=== PATIENT | female | born 1950 | race Caucasian/White ===

== ENCOUNTER 2018-05-03 16:12 | Outpatient (REF) | payer BC, SELFPAY ==
--- NOTE | 2018-05-03 14:40 | PAPFT_PTH ---
PATIENT: Tonja Joseph LOC: [facility] U#:[id number] AGE/SX: 67/F ROOM: RE05/03/[address]: Britta Molina : 1950 BED: DIS: 05/03/2018 SPEC #: [id number] RECD: 05/03/18 17:45 STATUS: ROSI RESusana #: [id number] EJ: 05/03/18 14:[address]: Britta Molina DEPT: [facility] Cytology RECD BY: Elena Barbosa ENTERED: 05/03/18 17:46 SP TYPE: PAPFT MIKE DR: None Tissues: 1 - CX/ENDOCX FOR PAP SMEARS Procedures: PAP THIN PREP/UVM Screening HPV DNA PROBE Comments: [id number]
== END 2018-05-03 16:32 ==
LOC: LBN 16:12
PROVIDERS: Visit Provider Obstetrics & Gynecology Gynecology
DX: Z12.4 Encounter for screening for malignant neoplasm of cervix (principal); Z11.51 Encounter for screening for human papillomavirus (HPV)
CPT/HCPCS: 88142; 87624

== ENCOUNTER 2018-06-13 16:57 | Inpatient (IN) | payer MEDICARE, BC, SELFPAY ==
[2018-06-13] VITALS (12 sets, daily range): BP systolic 89–146; BP diastolic 42–83; PULSE 73–93; RESP 16–23; TEMP 36.3–36.7; O2SAT 92–96
--- NOTE | 2018-06-13 17:07 | DI.CT_ITS ---
SYMPTOM/DIAGNOSIS: RT SIDED ABD PAIN CTA OF ABDOMEN AND PELVIS: CT angiography was performed with multi slice acquisition and multi planar and 3D reconstruction. Routine examination was performed. No priors for comparison. Dependent atelectatic changes are seen in the lung bases. There is a 6 mm., low attenuation lesion seen in the medial aspect of the posterior segment of the right lobe of the liver. There are several smaller tiny hypodense lesions. These are nonspecific. They may represent cysts but are too small for further characterization. The gallbladder is negative. No biliary ductal dilatation is seen. The pancreas and peripancreatic soft tissues are unremarkable as are the spleen and adrenal glands. The kidneys show normal and symmetric enhancement. No solid renal mass or obstruction is identified. The urinary bladder is intact. The reproductive organs appear grossly unremarkable on this examination. The abdominal aorta is of normal caliber. No aneurysm, occlusion or significant stenosis is seen. The celiac axis, superior mesenteric artery and inferior mesenteric artery are all unremarkable without evidence of occlusion or significant stenosis. The iliac arteries are unremarkable without evidence of occlusion or significant stenosis. The visualized portions of the proximal femoral arteries are unremarkable without occlusion or significant stenosis. No significant abdominal or pelvic adenopathy or pneumoperitoneum is seen. There does appear to be a trace amount of perihepatic fluid and a tiny amount of fluid in the pelvis. The appendix is distended measuring 1.0 cm. It is retrocecal. Mild elsie- appendiceal inflammatory changes are seen. There is mild bowel wall thickening and several loops of the predominantly jejunum. There is also mild dilatation of several loops of small bowel centrally. The colon is of normal caliber and unremarkable. The bones and joints appear to show no acute abnormality. IMPRESSION: 1. Appendix distended measuring at least 1 cm. in diameter. It is retrocecal. There are mild elsie-appendiceal inflammatory changes. The findings are most suggestive of acute appendicitis. No abscess or free air. 2. Scattered areas of bowel wall thickening in the mid small bowel suspicious for enteritis. This may be infectious or inflammatory in etiology. 3. Low attenuation lesions seen in the liver. The largest measures 0.6 cm. They are too small for further characterization. Follow up as clinically appropriate. 4. Unremarkable abdominal arterial system. No evidence of occlusion or significant stenosis.
--- NOTE | 2018-06-13 17:07 | W.ED.GENAD ---
Discharge Plan Disposition Patient Disposition: [facility] INPATIENT Condition: Stable Discharge Details Chief Complaint: Abd Prob Clinical Impression: Acute appendicitis Primary Care Provider: None,None ED Provider: Zachery Austin Home Meds and New Rx's Prescriptions: No Action vitamin K2 40 mcg tablet 200 mcg PO DAILY RF: 0 zolpidem 5 mg tablet 5 mg PO PRN Qty: 30 RF: 0 multivitamin [Daily Vitamin] 1 EACH tablet 1 ea PO DAILY RF: 0 omega-3 fatty acids 1,000 MG capsule 1,000 mg PO DAILY RF: 0 ascorbic acid (vitamin C) [Vitamin C] 500 MG tablet 500 mg PO DAILY RF: 0 cholecalciferol (vitamin D3) 1,000 UNIT capsule 1,000 unit PO DAILY RF: 0 melatonin 1 MG tablet 0.6 mg PO HS RF: 0 Iodine 3 mg PO DAILY RF: 0 Probiotic 1 EACH capsule 1 ea PO DAILY RF: 0 magnesium oxide 250 MG tablet 350 mg PO DAILY RF: 0 Medical Decision Making 67 yo female who denies any chronic medical problems who comes in with chief complaint of abdominal pain starting around 3 hours prior to arrival. SHe had been jumping on a treadmill before this but denies falling. SHe had general abdominal cramping yesterday but then 2-3 hours had severe cramping/sharp pain on the ruq and rlq. Denies vomit but has nausea. HAs tenderness in the rlq and ruq, no distention. She appears uncomfortable on exam and denies any hx of prior surgeries or prior abdominal history such as chrohn's or UC. Given her pain will obtain lab work and imaging to eval for pancreatitis, hepatitis, ischemic bowel, appendicitis and monitor. labs show wbc of [address] shows appendicit[address] Pate consulted, will bring pt to the OR Differential Diagnosis appendicitis, pancreatitis, cholecystitis, mesenteric ischemia Imaging Data Radiologic Study: Attestation: I personally reviewed and interpreted this imaging study as follows: Imaging: CT Scan Radiologist's impression: IMPRESSION: 1. The appendix measures 10 mm and is retrocecal (4:61.) Mild periappendiceal inflammatory changes. Findings consistent with acute appendicitis. 2. Intermittent bowel wall thickening in the jejunum may represent enteritis including infectious and inflammatory etiologies. 3. 6 mm low attenuation nodule right lobe of the liver 40 Hounsfield units. Additional smaller low attenuation areas in the liver are too small to characterize. Lab Data Lab results reviewed: Yes I reviewed the patient's lab results. HPI General Mode of arrival: ambulatory. Date/Time Provider Initiated Documentation: 06/13/18 17:02. Limitations to Documentation: no limitations. Information obtained by: patient. History of Present Illness 67 year old F presents to the emergency department with the chief complaint of abdominal pain, described as severe, with intensity rated at 7. Quality is described as aching, sharp and other (cramping), and is localized to the abdomen. Patient reports no radiation. Patient started experiencing this hour(s) (3) and it has been constant. No relieving factors improve symptom(s), No exacerbating factors reported . Patient notes other (nausea). Patient did receive the following treatments prior to arrival, none Related Data Home Medications Medication Instructions Recorded Confirmed Iodine 3 mg PO DAILY 03/27/13 06/13/18 ascorbic acid (vitamin C) [Vitamin 500 mg PO DAILY 03/27/13 06/13/18 C] cholecalciferol (vitamin D3) 1,000 unit PO DAILY 03/27/13 06/13/18 melatonin 0.6 mg PO HS 03/27/13 06/13/18 multivitamin [Daily Vitamin] 1 ea PO DAILY 03/27/13 06/13/18 omega-3 fatty acids 1,000 mg PO DAILY 03/27/13 06/13/18 Lactobacillus acidophilus 1 ea PO DAILY 04/04/14 06/13/18 [Probiotic] magnesium oxide 350 mg PO DAILY 04/08/15 06/13/18 vitamin K2 40 mcg tablet 200 mcg PO DAILY tab 05/03/18 06/13/18 zolpidem 5 mg tablet 5 mg PO PRN #30 tab 05/03/18 06/13/18 Previous Rx's Medication Instructions Recorded zolpidem 5 mg tablet 5 mg PO PRN #30 tab 05/03/18 Allergies Allergy/AdvReac Type Severity Reaction Status Date / Time No Known Allergies Allergy Unverified 05/03/18 14:20 General Stated Complaint: Abd Prob MAURICE: 3 Review of Systems Review of Systems All systems reviewed & are unremarkable except as noted in HPI and below Constitutional Denies chills, Denies fever(s) and Denies weakness ENT Denies change in voice Cardiovascular Denies chest pain and Denies dyspnea Respiratory Denies cough and Denies dyspnea Gastrointestinal Denies abdominal pain and Denies nausea Integumentary/Breasts Denies rash Neurologic Denies weakness [facility] Medical History Actinic keratosis due to exposure to sunlight (Chronic) Insomnia (Chronic) Osteopenia of femoral neck (Chronic) Rectocele, female (Chronic) TV (tinea versicolor) (Chronic) Family History Mother No problems noted. Other Heart disease Hyperlipidemia Osteoporosis Social History household members: spouse marital status details: Rell number of children: 3 current occupational status: retired current occupation: Retired dental hygienist Smoking and Tabacco status: Never second hand exposure: Yes alcohol intake: current alcohol intake frequency: a few times a week substance use type: does not use Seatbelt use: always additional social history: Children: Kaitlynn-lives in [place]. One grandchild-Elis Villa 31 years old lives in [place], [place]. Izzy 26 yo. Female Reproductive History Menstrual Menopause type: natural (50 years old) History History 5 Para Hx # Term Pregnancies 3 Multiple births Hx # Pregnancies Ectopic pregnancies AB induced Hx Number of Living Children AB spontaneous Exam Const General: other (appears in pain) Orientation: alert HENMT Head: normal to inspection Ears: external ears normal General nose exam: external nose normal Mouth: moist mucous membranes Eyes General: appearance normal, both eyes and all related structures Neck Neck: normal visual inspection Resp Effort & Inspection: normal respiratory effort and able to speak in complete sentences Cardio Rate: regular rate GI Inspection: no abdominal wall ecchymosis Palpation: soft and tender in the RLQ and in the RUQ Skin General skin exam: no rashes or lesions noted Neuro General: alert and oriented x3 Extrem General: normal to inspection Psych Mental Status: mental status grossly normal Course Vital Signs Temperature 36.7 C 06/13/18 17:04 Pulse 80 06/13/18 17:04 Blood Pressure 146/83 H 06/13/18 17:04 Pulse Oximetry 96 06/13/18 17:04 Temperature 36.7 C 06/13/18 17:04 Temperature Source Temporal Artery Scan 06/13/18 17:04 Pulse 80 06/13/18 17:04 Blood Pressure 146/83 H 06/13/18 17:04 Blood Pressure Position Sitting 06/13/18 17:04 Pulse Oximetry 96 06/13/18 17:04 Oxygen Delivery Method Room Air 06/13/18 17:04 Oxygen Flow Rate 0 06/13/18 17:04 Pain Level 10 06/13/18 17:04
--- NOTE | 2018-06-13 17:11 | ED.GENADUL_ITS ---
Discharge Plan Disposition Patient Disposition: [facility] INPATIENT Condition: Stable Discharge Details Chief Complaint: Abd Prob Clinical Impression: Acute appendicitis Primary Care Provider: None,None ED Provider: Zachery Austin Home Meds and New Rx's Prescriptions: No Action vitamin K2 40 mcg tablet 200 mcg PO DAILY RF: 0 zolpidem 5 mg tablet 5 mg PO PRN Qty: 30 RF: 0 multivitamin [Daily Vitamin] 1 EACH tablet 1 ea PO DAILY RF: 0 omega-3 fatty acids 1,000 MG capsule 1,000 mg PO DAILY RF: 0 ascorbic acid (vitamin C) [Vitamin C] 500 MG tablet 500 mg PO DAILY RF: 0 cholecalciferol (vitamin D3) 1,000 UNIT capsule 1,000 unit PO DAILY RF: 0 melatonin 1 MG tablet 0.6 mg PO HS RF: 0 Iodine 3 mg PO DAILY RF: 0 Probiotic 1 EACH capsule 1 ea PO DAILY RF: 0 magnesium oxide 250 MG tablet 350 mg PO DAILY RF: 0 Medical Decision Making 67 yo female who denies any chronic medical problems who comes in with chief complaint of abdominal pain starting around 3 hours prior to arrival. SHe had been jumping on a treadmill before this but denies falling. SHe had general abdominal cramping yesterday but then 2-3 hours had severe cramping/sharp pain on the ruq and rlq. Denies vomit but has nausea. HAs tenderness in the rlq and ruq, no distention. She appears uncomfortable on exam and denies any hx of prior surgeries or prior abdominal history such as chrohn's or UC. Given her pain will obtain lab work and imaging to eval for pancreatitis, hepatitis, ischemic bowel, appendicitis and monitor. labs show wbc of [address] shows appendicitis. Dr[address] Pate consulted, will bring pt to the OR Differential Diagnosis appendicitis, pancreatitis, cholecystitis, mesenteric ischemia Imaging Data Radiologic Study: Attestation: I personally reviewed and interpreted this imaging study as follows: Imaging: CT Scan Radiologist's impression: IMPRESSION: 1. The appendix measures 10 mm and is retrocecal (4:61.) Mild periappendiceal inflammatory changes. Findings consistent with acute appendicitis. 2. Intermittent bowel wall thickening in the jejunum may represent enteritis including infectious and inflammatory etiologies. 3. 6 mm low attenuation nodule right lobe of the liver 40 Hounsfield units. Additional smaller low attenuation areas in the liver are too small to characterize. Lab Data Lab results reviewed: Yes I reviewed the patient's lab results. HPI General Mode of arrival: ambulatory . Date/Time Provider Initiated Documentation: 06/13/18 17:02 . Limitations to Documentation: no limitations . Information obtained by: patient . History of Present Illness 67 year old F presents to the emergency department with the chief complaint of abdominal pain, described as severe, with intensity rated at 7. Quality is described as aching, sharp and other (cramping), and is localized to the abdomen. Patient reports no radiation. Patient started experiencing this hour(s) (3) and it has been constant. No relieving factors improve symptom(s), No exacerbating factors reported . Patient notes other (nausea). Patient did receive the following treatments prior to arrival, none Related Data Home Medications Medication Instructions Recorded Confirmed Iodine 3 mg PO DAILY 03/27/13 06/13/18 ascorbic acid (vitamin C) [Vitamin 500 mg PO DAILY 03/27/13 06/13/18 C] cholecalciferol (vitamin D3) 1,000 unit PO DAILY 03/27/13 06/13/18 melatonin 0.6 mg PO HS 03/27/13 06/13/18 multivitamin [Daily Vitamin] 1 ea PO DAILY 03/27/13 06/13/18 omega-3 fatty acids 1,000 mg PO DAILY 03/27/13 06/13/18 Lactobacillus acidophilus 1 ea PO DAILY 04/04/14 06/13/18 [Probiotic] magnesium oxide 350 mg PO DAILY 04/08/15 06/13/18 vitamin K2 40 mcg tablet 200 mcg PO DAILY tab 05/03/18 06/13/18 zolpidem 5 mg tablet 5 mg PO PRN #30 tab 05/03/18 06/13/18 Previous Rx's Medication Instructions Recorded zolpidem 5 mg tablet 5 mg PO PRN #30 tab 05/03/18 Allergies Allergy/AdvReac Type Severity Reaction Status Date / Time No Known Allergies Allergy Unverified 05/03/18 14:20 General Stated Complaint: Abd Prob MAURICE: 3 Review of Systems Review of Systems All systems reviewed & are unremarkable except as noted in HPI and below Constitutional Denies chills, Denies fever(s) and Denies weakness ENT Denies change in voice Cardiovascular Denies chest pain and Denies dyspnea Respiratory Denies cough and Denies dyspnea Gastrointestinal Denies abdominal pain and Denies nausea Integumentary/Breasts Denies rash Neurologic Denies weakness [facility] Medical History Actinic keratosis due to exposure to sunlight (Chronic) Insomnia (Chronic) Osteopenia of femoral neck (Chronic) Rectocele, female (Chronic) TV (tinea versicolor) (Chronic) Family History Mother No problems noted. Other Heart disease Hyperlipidemia Osteoporosis Social History household members: spouse marital status details: Rell number of children: 3 current occupational status: retired current occupation: Retired dental hygienist Smoking and Tabacco status: Never second hand exposure: Yes alcohol intake: current alcohol intake frequency: a few times a week substance use type: does not use Seatbelt use: always additional social history: Children: Kaitlynn-lives in [place]. One grandchild-Elis Villa 31 years old lives in [place], [place]. Izzy 26 yo. Female Reproductive History Menstrual Menopause type: natural (50 years old) History History 5 Para Hx # Term Pregnancies 3 Multiple births Hx # Pregnancies Ectopic pregnancies AB induced Hx Number of Living Children AB spontaneous Exam Const General: other (appears in pain) Orientation: alert HENMT Head: normal to inspection Ears: external ears normal General nose exam: external nose normal Mouth: moist mucous membranes Eyes General: appearance normal, both eyes and all related structures Neck Neck: normal visual inspection Resp Effort & Inspection: normal respiratory effort and able to speak in complete sentences Cardio Rate: regular rate GI Inspection: no abdominal wall ecchymosis Palpation: soft and tender in the RLQ and in the RUQ Skin General skin exam: no rashes or lesions noted Neuro General: alert and oriented x3 Extrem General: normal to inspection Psych Mental Status: mental status grossly normal Course Vital Signs Temperature 36.7 C 06/13/18 17:04 Pulse 80 06/13/18 17:04 Blood Pressure 146/83 H 06/13/18 17:04 Pulse Oximetry 96 06/13/18 17:04 Temperature 36.7 C 06/13/18 17:04 Temperature Source Temporal Artery Scan 06/13/18 17:04 Pulse 80 06/13/18 17:04 Blood Pressure 146/83 H 06/13/18 17:04 Blood Pressure Position Sitting 06/13/18 17:04 Pulse Oximetry 96 06/13/18 17:04 Oxygen Delivery Method Room Air 06/13/18 17:04 Oxygen Flow Rate 0 06/13/18 17:04 Pain Level 10 06/13/18 17:04
[2018-06-13] MEDS: fentaNYL 100 MCG/2 ML VIAL 50 MCG IVP ×2 (17:17→19:09)
[2018-06-13] MEDS: Ondansetron 4 MG/2 ML VIAL (17:18)
[2018-06-13] MEDS: Normal Saline 1,000 ML 1000 ML IV (17:18)
[2018-06-13 17:28] LABS: ALT 18 U/L (12-78); AST 14 U/L (15-37); Albumin 3.8 g/dL (3.4-5.0); Alkaline Phosphatase 67 U/L (46-116); Anion Gap 10.9 mmol/L (3-11); BUN 14 mg/dL (7-18); Bilirubin, Direct 0.16 mg/dL (0.00-0.20); Bilirubin, Total 0.8 mg/dL (0.2-1.0); CO2 28.1 mmol/L (21.0-32.0); CREATININE 0.91 mg/dL (0.55-1.02); Chloride 97 mmol/L (98-107); Glucose 140 mg/dL (70-100); Lipase 92 U/L (73-393); Magnesium 1.6 mg/dL (1.8-2.4); Potassium 3.4 mmol/L (3.5-5.1); Sodium 136 mmol/L (136-145)
[2018-06-13 17:36] LABS: Abs Immature Grans 0.03 k/cumm (0.0-0.09); Absolute Basophil Count 0.03 k/cumm (0.0-0.2); Absolute Eosinophil Count 0.04 k/cumm (0.0-0.7); Absolute Lymphocyte Count 1.82 k/cumm (1.2-3.4); Absolute Neutrophil Count 10.82 k/cumm (1.2-6.7); Basophils % 0.2; Eosinophils % 0.3; HCT 44.3 % (36.0-46.0); HGB 14.9 g/dL (12.0-15.5); Immature Grans % 0.2; Lymphocytes % 13.7; Mean Corp. HGB Concentration 33.6 g/dL (32.0-36.0); Mean Corpuscular Hemoglobin 29.6 pg (27.0-33.0); Mean Corpuscular Volume 87.9 fL (80-95); Mean Platelet Volume 10.3 fL (8.0-11.0); Monocytes % 4.4; Neutrophils % 81.2; Platelet Count 257 x1000/uL (130-400); RBC 5.04 m/cumm (4.00-5.20); RBC Distribution Width 12.8 % (11.7-14.6); White Blood Cell Count 13.32 k/cumm (4.4-10.8)
[2018-06-13 17:48] LABS: Absolute Monocyte Count 0.59 k/cumm (0.11-0.7)
[2018-06-13 17:49] LABS: PTT Activated 23.2 sec (21.0-31.4); Prothrombin Time 9.9 sec (9.3-11.0)
[2018-06-13] MEDS: Omnipaque 350 MG/ML 100 ML BTL IV (18:27)
[2018-06-13 18:38] LABS: Bilirubin Negative (Negative); Blood Negative (Negative); Clarity Clear; Glucose Negative (Negative); Ketones 80 mg/dL (Negative); Leukocyte Esterase Small (Negative); Nitrite Negative (Negative); Specific Gravity 1.015 (1.005-1.025); Urobilinogen 0.2 EU/dL (Up TO 0.2)
[2018-06-13 18:41] LABS: Bacteria Few HPF (Negative); C & S Indicated? Yes; Casts Negative LPF (Negative); Crystals Negative HPF (Negative); Epithelial Cells Few HPF (Negative); Mucus Negative (Negative); RBC Negative (0-2)
--- NOTE | 2018-06-13 18:55 | DI.VRAD_ITS ---
Addendum created by Chaz Gallo MD on 06/13/2018 6:56:54 PM EST THIS REPORT CONTAINS FINDINGS THAT MAY BE CRITICAL TO PATIENT CARE. The findings were verbally communicated via telephone conference with Zachery Austin at 6:56 PM EST on 06/13/2018. The findings were acknowledged and understood. Initial report created on 06/13/2018 6:55:09 PM EST EXAM: CT Angiography Abdomen and Pelvis With Contrast EXAM DATE/TIME: 06/13/2018 5:08 PM CLINICAL HISTORY: 67 years old, female; Signs and symptoms; Other: Right sided abdominal pain TECHNIQUE: Axial computed tomographic angiography images of the abdomen and pelvis with intravenous contrast material, including non-contrast images if performed. MIP and/or 3D reconstructed images were created and reviewed. All CT scans at this facility use at least one of these dose optimization techniques: automated exposure control; mA and/or kV adjustment per patient size (includes targeted exams where dose is matched to clinical indication); or iterative reconstruction. CONTRAST: Contrast Material: 100 ml of omnipaque 350; Contrast Route: iv COMPARISON: No relevant prior studies available. FINDINGS: Mediastinum: Mild hiatal hernia VASCULATURE: Aorta: No aortic aneurysm. No aortic dissection. Celiac trunk and mesenteric arteries: No occlusion or significant stenosis. Renal arteries: No occlusion or significant stenosis. Right iliac arteries: No occlusion or significant stenosis. Right femoral/popliteal arteries: No occlusion or significant stenosis of the imaged proximal femoral artery. The popliteal artery was not imaged. Left iliac arteries: No occlusion or significant stenosis. Left femoral/popliteal arteries: No occlusion or significant stenosis of the imaged proximal femoral artery. The popliteal artery was not imaged. ABDOMEN: Liver: 6 mm low attenuation nodule right lobe of the liver 40 Hounsfield units. Additional smaller low attenuation areas in the liver are too small to characterize. Gallbladder and bile ducts: Unremarkable. No calcified stones. No ductal dilation. Pancreas: Unremarkable. No mass. No ductal dilation. Spleen: Unremarkable. No splenomegaly. Adrenals: Unremarkable. No mass. Kidneys and ureters: 9 mm cyst in the posterior right kidney. Stomach and bowel: Intermittent bowel wall thickening in the jejunum may represent enteritis including infectious and inflammatory etiologies. Findings consistent with constipation Appendix: The appendix measures 10 mm and is retrocecal (4:61.) Mild periappendiceal inflammatory changes. Findings consistent with acute appendicitis. PELVIS: Bladder: Unremarkable. No mass. Reproductive: Unremarkable as visualized. ABDOMEN and PELVIS: Intraperitoneal space: Minimal ascites adjacent to liver . Mild amount of free fluid in the pelvis Bones/joints: No acute fracture. No dislocation. Soft tissues: Unremarkable. Lymph nodes: Unremarkable. No enlarged lymph nodes. IMPRESSION: 1. The appendix measures 10 mm and is retrocecal (4:61.) Mild periappendiceal inflammatory changes. Findings consistent with acute appendicitis. 2. Intermittent bowel wall thickening in the jejunum may represent enteritis including infectious and inflammatory etiologies. 3. 6 mm low attenuation nodule right lobe of the liver 40 Hounsfield units. Additional smaller low attenuation areas in the liver are too small to characterize. Dictated and Authenticated by: Chaz Gallo MD. Ordering:CASSY Bingham MD
[2018-06-13] MEDS: PIPERACILLIN/TAZO 4.5 GM in Normal Saline 100 ML IVPB (19:12)
--- NOTE | 2018-06-13 20:11 | W.SURGCON ---
Date of service: 06/13/18 Time of Service: 20:11 Assessment and Plan (1) Acute appendicitis: Current visit: Yes Status: Acute P\\ Laparoscopic Appendectomy, possible open Risks, benefits, complications were reviewed with the patient and her . Complications include but are not limited to bleeding, infection, pain, injury to small bowel or large bowel, inability to do the surgery laparoscopically, sore throat, and adverse reaction to the medications. Questions were entertained and answered to their satisfaction and they wish to proceed. No guarantees were given or implied. Qualifiers: Acute appendicitis type: with localized peritonitis Appendicitis gangrene presence: unspecified whether gangrene present Appendicitis perforation presence: unspecified whether perforation present Appendicitis abscess presence: unspecified whether abscess present Qualified Code(s): K35.30 - Acute appendicitis with localized peritonitis, without perforation or gangrene History of Present Illness Chief Complaint: Abdominal pain Narrative: Mrs. Joseph is a pleasant 67 year old female who was having some mild cramping abdominal pain yesterday. This morning she felt a little better her granddaughter was with her and she was busy with her baking cookies. She stated she did not have an appetite all day and when her ground her daughter asked her to jump on the small trampoline in the home she tried and had a lot of pain. By about 2:00 in the afternoon she was doubled over in pain. Pain is located in the right lower quadrant. She denies any nausea or vomiting. She denies any diarrhea. There is nobody else in the family who is sick. She has not had a sore throat or upper respiratory symptoms. Workup in the ED revealed a slightly elevated white blood cell count at [address] scan of the abdomen and pelvis showed a dilated appendix with some periappendiceal inflammation. The appendix was also noted to be retrocecal. Ms. Joseph is otherwise quite healthy. Her medications are mostly vitamins except for zolpidem which she takes for insomnia. She denies any chest pain. She does not have a history of heart attacks or strokes in the past. Her last meal was before noon which was a rice cracker with peanut butter. She last had a couple of glasses of water between 2 PM and 4 PM when she came to the emergency department. Consults Consult date: 06/13/18 Requesting physician: Zachery Austin Review of Systems Constitutional Reports fever(s) (just now in the ER, NO fevers at home), Denies night sweats, Reports poor appetite and Denies weight loss Eyes Denies change in vision ENT Denies neck pain Cardiovascular Denies chest pain, Denies chest pain at rest, Denies chest pain with activity, Denies irregular heart rhythm, Denies claudication, Denies palpitations, Denies dyspnea, Denies dyspnea on exertion and Denies slow heart rate Respiratory Denies chest congestion, Denies cough, Denies dyspnea and Denies dyspnea on exertion Gastrointestinal Reports as per HPI Genitourinary Denies dysuria Musculoskeletal Denies myalgias and Denies neck pain Endocrine Denies cold intolerance, Denies heat intolerance, Denies polydipsia and Denies palpitations Hematologic/Lymphatic Denies easy bleeding, Denies easy bruising and Denies lymphadenopathy PFSH Medical History Actinic keratosis due to exposure to sunlight (Chronic) Insomnia (Chronic) Osteopenia of femoral neck (Chronic) Rectocele, female (Chronic) TV (tinea versicolor) (Chronic) Family History Mother No problems noted. Other Heart disease Hyperlipidemia Osteoporosis Social History household members: spouse marital status details: Rell number of children: 3 current occupational status: retired current occupation: Retired dental hygienist Smoking and Tabacco status: Never second hand exposure: Yes alcohol intake: current alcohol intake frequency: a few times a week substance use type: does not use Seatbelt use: always additional social history: Children: Kaitlynn-lives in [place]. One grandchild-Elis Villa 31 years old lives in [place], [place]. Izzy 26 yo. Female Reproductive History Menstrual Menopause type: natural (50 years old) History History 5 Para Hx # Term Pregnancies 3 Multiple births Hx # Pregnancies Ectopic pregnancies AB induced Hx Number of Living Children AB spontaneous Exam Const General: cooperative, comfortable and no acute distress Orientation: alert and oriented x3 HENMT Head: normocephalic and atraumatic Eyes Pupils: PERRL Resp Effort & Inspection: normal respiratory effort Auscultation: clear to auscultation bilaterally Cardio Rate: regular rate Rhythm: regular rhythm Heart Sounds: no gallops, no murmurs and no rubs GI Inspection: normal to inspection Palpation: soft, no hepatosplenomegaly and tender in the RLQ and at McBurney's point Auscultation: normal bowel sounds General: deferred Extrem General: no clubbing, cyanosis or edema Results Last Vital Signs Temp 98.1 F 06/13/18 17:04 Pulse 93 H 06/13/18 18:58 Resp 16 06/13/18 18:58 BP 113/63 06/13/18 18:58 Pulse Ox 95 06/13/18 18:58 Labs : 06/13/18 17:05 06/13/18 17:05 Laboratory Results - last 24 hr 06/13/18 06/13/18 06/13/18 17:05 17:05 17:05 WBC 13.32 H RBC 5.04 Hgb 14.9 Hct 44.3 MCV 87.9 MCH 29.6 MCHC 33.6 RDW 12.8 Plt Count 257 MPV 10.3 Immature Gran % 0.2 Neutrophils % 81.2 Lymphocytes % 13.7 Monocytes % 4.4 Eosinophils % 0.3 Basophils % 0.2 Absolute Neutrophils 10.82 H Absolute Lymphocytes 1.82 Absolute Monocytes 0.59 Absolute Eosinophils 0.04 Absolute Basophils 0.03 PT 9.9 INR 1.0 APTT Sodium 136 Potassium 3.4 L Chloride 97 L Carbon Dioxide 28.1 Anion Gap 10.9 BUN 14 Creatinine 0.91 Estimated GFR/1.73 m2 >= 60.00 Glucose 140 H Calcium 9.0 Magnesium 1.6 L Total Bilirubin 0.8 Conjugated Bilirubin 0.16 AST 14 L ALT 18 Alkaline Phosphatase 67 Total Protein 8.0 Albumin 3.8 Lipase 92 Urine Color Urine Clarity Urine pH Ur Specific Beatrice Urine Protein Urine Ketones Urine Blood Urine Nitrite Urine Bilirubin Urine Urobilinogen Ur Leukocyte Esterase Urine RBC Urine WBC Ur Epithelial Cells Urine Crystals Urine Bacteria Urine Casts Urine Mucus Ur Culture Indicated? Urine Glucose 06/13/18 06/13/18 17:05 18:25 WBC RBC Hgb Hct MCV MCH MCHC RDW Plt Count MPV Immature Gran % Neutrophils % Lymphocytes % Monocytes % Eosinophils % Basophils % Absolute Neutrophils Absolute Lymphocytes Absolute Monocytes Absolute Eosinophils Absolute Basophils PT INR APTT 23.2 Sodium Potassium Chloride Carbon Dioxide Anion Gap BUN Creatinine Estimated GFR/1.73 m2 Glucose Calcium Magnesium Total Bilirubin Conjugated Bilirubin AST ALT Alkaline Phosphatase Total Protein Albumin Lipase Urine Color Yellow Urine Clarity Clear Urine pH 6.0 Ur Specific Beatrice 1.015 Urine Protein Negative Urine Ketones 80 H Urine Blood Negative Urine Nitrite Negative Urine Bilirubin Negative Urine Urobilinogen 0.2 Ur Leukocyte Esterase Small H Urine RBC Negative Urine WBC 5-10 Ur Epithelial Cells Few Urine Crystals Negative Urine Bacteria Few Urine Casts Negative Urine Mucus Negative Ur Culture Indicated? Yes Urine Glucose Negative
[2018-06-13] MEDS: Lactated Ringers 1,000 ML 1000 ML IV (20:23)
--- NOTE | 2018-06-13 21:10 | APP_PTH ---
PATIENT: Tonja Joseph LOC: [id number] AGE/SX: 67/F ROOM: [id number] RE06/13/[address]: Stefani Andrews MD : [id number] BED: A DIS: 06/14/2018 SPEC #: [id number] RECD: 06/14/18 12:25 STATUS: ROSI REQ #: [id number] EJ: 06/13/18 21:[address]: Stefani Andrews DEPT: Surgical Specimen RECD BY: Elena Barbosa ENTERED: 06/14/18 12:26 SP TYPE: Appendix OTHR DR: None Tissues: 1 - APPENDIX NOT INCIDENTAL Procedures: GROSS AND MICRO LEVEL 3 Comments: [id number]
[2018-06-13] MEDS: Lidocaine 1% Multi-Dose 50 ML VIAL (21:28)
[2018-06-13] MEDS: Lactated Ringers 1,000 ML 75 ML IV (21:43)
--- NOTE | 2018-06-13 22:02 | W.PM.OP ---
Date of service: 06/13/18 Time of Service: 22:02 Operative Note DATE OF PROCEDURE: 06/13/18 PRE-OP DIAGNOSIS: Acute appendicitis POST-OP DIAGNOSIS: other (acute suppurative appendicitis) PROCEDURE: Laparoscopic Appendectomy SURGEON: Stefani Andrews BUSINESS CONTINUITY DIRECTOR: Pretty Saucedo ANESTHESIA: GETA ESTIMATED BLOOD LOSS: 50 PATHOLOGY: other (appendix) COMPLICATIONS: None Patient was transported to: PACU Patient's condition: stable Indications: Mrs. Jake bernal 67-year-old female who started to have abdominal pain yesterday which worsened today until she was doubled over and came to the emergency department. Workup in the emergency department revealed a slightly elevated white count of 13,[address] scan showed an enlarged appendix with inflammation. Risks, benefits, complications of the procedure were reviewed with her and her and they wish to proceed. No guarantees were given or implied. Findings: Inflammation of the surrounding cecum and terminal ileum as well as inflammation of the peritoneum was identified. The appendix was dilated and possibly necrotic at the neck. No perforation was noted but there was a lot of inflammatory fluid within the abdomen. Procedure Description: After informed consent was obtained patient was taken to the operating room placed in a supine position. SCDs were applied. Monitors were applied and the patient was placed under general anesthesia and intubated. Once intubated a Farley catheter was placed in the standard surgical fashion. At this point a timeout was done. The patient's name, date of , procedure type, allergies to medication, DVT prophylaxis, antibiotic given, and open oxygen were reviewed. Next the patient's abdomen was prepped and draped in a sterile surgical fashion with ChloraPrep. A mixture of half percent bupivacaine with epinephrine and 1% lidocaine was injected above the umbilicus. A small 5 mm incision was made with an 11 blade. Penetrating towel clamps were then placed on either side of the incision and while pulling up on the skin a 5 mm Visiport was placed under direct visualization into the abdomen without difficulty. Once the port was in place the abdomen was insufflated. At this point tomorrow ports were placed one in the left lower quadrant which was a 12 mm port and and another 5 mm port was placed just above the pubic symphysis. The abdomen was inspected and a lot of inflammation was noted of the peritoneum, the cecum and terminal ileum. There was some cloudy fluid noted along the cecum and up above the liver. The patient was rotated to the left in order to allow the cecum to come more midline allowing me to visualize the appendix. The neck of the appendix was identified and followed along side the terminal ileum until the tip of the appendix was identified. The tip of the appendix was grasped and gently pulled up and then the [place] dissector was used to gently separate the appendiceal epiploica from the terminal ileum. Using the LigaSure the appendiceal epiploica was transected at the neck of the appendix. Because of all the inflammation noted around the appendix and cecum a sterile Vicryl Endoloop was placed around the appendix at the junction with the cecum and cinched down. The suture was cut with Endo scissors. Using a laparoscopic stapler the appendix was then transected just above the Vicryl Endoloop. The appendix was then placed into an Endo Catch bag and removed through the 12 mm port site. The port was replaced and the abdomen was then irrigated with 1-1/2 L of normal saline. A Ray-Ramakrishna was placed into the abdomen to facilitate suctioning of all of the fluid. At the end of the effluent was clear. Once all the fluid was removed the Ray-Ramakrishna was removed from the abdomen. The cecum was inspected no injuries were noted in the staple line was dry. No bleeding was identified. The terminal ileum was then gently grasped and followed along for about 20 cm and no injuries were identified along the area where it was adhered to the appendix. At this point with all the fluid suctioned out of the abdomen 30 cc of the local anesthetic was injected above the liver bed to help with postoperative shoulder pain. At this point the 2 5 mm ports were removed under direct visualization and no bleeding was noted from the fascia. Last at the 12 mm port was removed and the abdomen was completely deflated. Using a 0 Vicryl UR 6 needle the fascia of the 12 mm port site was closed with a figure of 8 stitch. The skin was reapproximated with 4-0 Vicryl. The skin was cleaned and dried and skin affix was applied. The Farley catheter was removed and the patient was woken up extubated and taken back to PACU in stable condition. There were no immediate complications. Instrument, sponge, needles were correct at the end of the case x2.
[2018-06-13] MEDS: DEXTROSE 5%-0.45% SALINE 1,000 ML 125 ML IV (23:16)
[2018-06-14] MEDS: PIPERACILLIN/TAZO 3.375 GM in Normal Saline 50 ML IVPB ×2 (02:04→07:01)
[2018-06-14 03:34] VITALS: BP 100/62; PULSE 66; RESP 16; TEMP 37.4; O2SAT 94
[2018-06-14] MEDS: DEXTROSE 5%-0.45% SALINE 1,000 ML 125 ML IV (04:34)
[2018-06-14] MEDS: Normal Saline Flush 10 ML SYR IVP ×2 (04:35→09:35)
--- NOTE | 2018-06-14 07:12 | PGE_ITS ---
Date of Service Date of service: 06/14/18 Time of Service: 07:05 Assessment and Plan (1) S/P appendectomy: Current visit: Yes Status: Acute A\\ POD #1 s/p Laparoscopic Appendectomy Doing well WBC count elevated. Afebrile. P\\ Saline lock IV Advance diet to regular Ambulate Will D/C home on antibiotics for 5 days If doing well after having breakfast and lunch will D/C home. Subjective Interval history since last seen: Doing well. Tolerating clear liquids. No N/V. Feels a little hungry. Pain well tolerated with Tylenol and Toradol. Exam Const General: cooperative, comfortable and no acute distress Resp Effort & Inspection: normal respiratory effort Auscultation: clear to auscultation bilaterally Cardio Rate: regular rate Rhythm: regular rhythm Heart Sounds: no gallops, no murmurs and no rubs GI Inspection: incision (c/d/i) Palpation: soft and tender in the RLQ Auscultation: normal bowel sounds Objective Objective Clinical Data: Abnormal lab results 06/13/18 06/13/18 06/13/18 Range/Units 17:05 17:05 18:25 WBC 13.32 H (4.4-10.8) k/cumm Absolute Neutrophils 10.82 H (1.2-6.7) k/cumm Potassium 3.4 L (3.5-5.1) mmol/L Chloride 97 L (98-107) mmol/L Glucose 140 H (70-100) mg/dL Magnesium 1.6 L (1.8-2.4) mg/dL AST 14 L (15-37) U/L Urine Ketones 80 H (Negative) mg/dL Ur Leukocyte Esterase Small H (Negative) Vital Signs Temperature 99.3 F 06/14/18 03:34 Temperature Source Tympanic 06/14/18 03:34 Pulse 66 06/14/18 03:34 Pulse Rhythm Regular 06/14/18 06:47 Respiratory Rate 16 06/14/18 03:34 Respiratory Effort 06/14/18 06:47 Respiratory Depth Normal 06/14/18 06:47 Respiratory Pattern Normal 06/14/18 06:47 Blood Pressure 100/62 06/14/18 03:34 Blood Pressure Mean 76 06/13/18 20:01 Blood Pressure Position Sitting 06/13/18 17:04 Pulse Oximetry 94 L 06/14/18 03:34 Respiratory End-tidal CO2 28 06/13/18 21:59 Oxygen Delivery Method Room Air 06/14/18 03:34 Oxygen Flow Rate 0 06/14/18 03:34 Pain Level 0 06/13/18 23:30 Intake & Output 06/13/18 06/13/18 06/14/18 11:59 23:59 11:59 Intake Total 2400 / 2400 915 / 915 Output Total 355 / 355 1550 / 1550 Balance 2045 / 2045 -635 / -635 Weight 135 lb 0.001 oz Intake: IV 2400 / 2400 365 / 365 Oral 550 / 550 Output: Urine 350 / 350 1550 / 1550 Estimated Blood Loss 5 / 5 Other: Urine Color Pale Yellow Urine Appearance Clear Clear Urine Odor Normal Comment Total of two voids Emesis Description None Voiding Methods Toilet Laboratory Results WBC 13.32 k/cumm (4.4-10.8) H 06/13/18 17:05 RBC 5.04 m/cumm (4.00-5.20) 06/13/18 17:05 Hgb 14.9 g/dL (12.0-15.5) 06/13/18 17:05 Hct 44.3 % (36.0-46.0) 06/13/18 17:05 MCV 87.9 fL (80-95) 06/13/18 17:05 MCH 29.6 pg (27.0-33.0) 06/13/18 17:05 MCHC 33.6 g/dL (32.0-36.0) 06/13/18 17:05 RDW 12.8 % (11.7-14.6) 06/13/18 17:05 Plt Count 257 x1000/uL (130-400) 06/13/18 17:05 MPV 10.3 fL (8.0-11.0) 06/13/18 17:05 Immature Gran % 0.2 06/13/18 17:05 Neutrophils % 81.2 06/13/18 17:05 Lymphocytes % 13.7 06/13/18 17:05 Monocytes % 4.4 06/13/18 17:05 Eosinophils % 0.3 06/13/18 17:05 Basophils % 0.2 06/13/18 17:05 Absolute Neutrophils 10.82 k/cumm (1.2-6.7) H 06/13/18 17:05 Absolute Lymphocytes 1.82 k/cumm (1.2-3.4) 06/13/18 17:05 Absolute Monocytes 0.59 k/cumm (0.11-0.7) 06/13/18 17:05 Absolute Eosinophils 0.04 k/cumm (0.0-0.7) 06/13/18 17:05 Absolute Basophils 0.03 k/cumm (0.0-0.2) 06/13/18 17:05 PT 9.9 sec (9.3-11.0) 06/13/18 17:05 INR 1.0 (0.9-1.1) 06/13/18 17:05 APTT 23.2 sec (21.0-31.4) 06/13/18 17:05 Sodium 136 mmol/L (136-145) 06/13/18 17:05 Potassium 3.4 mmol/L (3.5-5.1) L 06/13/18 17:05 Chloride 97 mmol/L (98-107) L 06/13/18 17:05 Carbon Dioxide 28.1 mmol/L (21.0-32.0) 06/13/18 17:05 Anion Gap 10.9 mmol/L (3-11) 06/13/18 17:05 BUN 14 mg/dL (7-18) 06/13/18 17:05 Creatinine 0.91 mg/dL (0.55-1.02) 06/13/18 17:05 Estimated GFR/1.73 m2 >= 60.00 (mL/min/1.73m2) 06/13/18 17:05 Glucose 140 mg/dL (70-100) H 06/13/18 17:05 Calcium 9.0 mg/dL (8.5-10.1) 06/13/18 17:05 Magnesium 1.6 mg/dL (1.8-2.4) L 06/13/18 17:05 Total Bilirubin 0.8 mg/dL (0.2-1.0) 06/13/18 17:05 Conjugated Bilirubin 0.16 mg/dL (0.00-0.20) 06/13/18 17:05 AST 14 U/L (15-37) L 06/13/18 17:05 ALT 18 U/L (12-78) 06/13/18 17:05 Alkaline Phosphatase 67 U/L (46-116) 06/13/18 17:05 Total Protein 8.0 g/dL (6.4-8.2) 06/13/18 17:05 Albumin 3.8 g/dL (3.4-5.0) 06/13/18 17:05 Lipase 92 U/L (73-393) 06/13/18 17:05 Urine Color Yellow (Yellow) 06/13/18 18:25 Urine Clarity Clear 06/13/18 18:25 Urine pH 6.0 (5-8) 06/13/18 18:25 Ur Specific [place] 1.015 (1.005-1.025) 06/13/18 18:25 Urine Protein Negative mg/dL (Negative) 06/13/18 18:25 Urine Ketones 80 mg/dL (Negative) H 06/13/18 18:25 Urine Blood Negative (Negative) 06/13/18 18:25 Urine Nitrite Negative (Negative) 06/13/18 18:25 Urine Bilirubin Negative (Negative) 06/13/18 18:25 Urine Urobilinogen 0.2 EU/dL (Up TO 0.2) 06/13/18 18:25 Ur Leukocyte Esterase Small (Negative) H 06/13/18 18:25 Urine RBC Negative (0-2) 06/13/18 18:25 Urine WBC 5-10 HPF (0-5) 06/13/18 18:25 Ur Epithelial Cells Few HPF (Negative) 06/13/18 18:25 Urine Crystals Negative HPF (Negative) 06/13/18 18:25 Urine Bacteria Few HPF (Negative) 06/13/18 18:25 Urine Casts Negative LPF (Negative) 06/13/18 18:25 Urine Mucus Negative (Negative) 06/13/18 18:25 Ur Culture Indicated? Yes 06/13/18 18:25 Urine Glucose Negative mg/dL (Negative) 06/13/18 18:25
[2018-06-14 07:17] LABS: Abs Immature Grans 0.04 k/cumm (0.0-0.09); Basophils % 0.1; HCT 36.4 % (36.0-46.0); HGB 12.2 g/dL (12.0-15.5); Immature Grans % 0.2; Lymphocytes % 5.4; Mean Corp. HGB Concentration 33.5 g/dL (32.0-36.0); Mean Corpuscular Hemoglobin 29.8 pg (27.0-33.0); Mean Corpuscular Volume 88.8 fL (80-95); Mean Platelet Volume 10.4 fL (8.0-11.0); Monocytes % 5.4; Neutrophils % 88.9; Platelet Count 228 x1000/uL (130-400); RBC Distribution Width 12.9 % (11.7-14.6); White Blood Cell Count 18.01 k/cumm (4.4-10.8)
--- NOTE | 2018-06-14 07:19 | PDOC.CMIN ---
- If Service Date Differs Date of service: 06/14/18 Time of Service: 07:19 Care Management Initial Assess REASON FOR HOSPITALIZATION:: Acute Appendicitis PAST MEDICAL HISTORY/PAST SURGICAL HISTORY:: Actinic keratosis due to exposure to sunlight (Chronic). Insomnia (Chronic). Osteopenia of femoral neck (Chronic). Rectocele, female (Chronic). TV (tinea versicolor) (Chronic) PREVIOUS FUNCTIONAL STATUS/SOCIAL/FAMILY SUPPORTS:: Tonja resides in [facility] with her Rell. She is independent at baseline, able to drive, and manages ADL's CURRENT FUNCTIONAL STATUS:: Currently Tonja is ambulating in the halls this morning. ADVANCE DIRECTIVES:: None on file Has patient been provided with information about the portal?: Yes Did the patient sign up for the portal?: No CODE STATUS:: Full Code INSURANCE COVERAGE / FINANCIAL ISSUES:: BCBS CURRENT HOME/COMMUNITY SERVICES/EQUIPMENT:: Currently Tonja has no services or medical equipment in the community. PRIMARY CARE PHYSICIAN:: No local POTENTIAL DISCHARGE NEEDS:: F/U appointment with Dr. Andrews PATIENT/FAMILY EDUCATION NEEDS:: Review DC instructions, any limitations, and ongoing DC planning discussion. Discuss 'Ask Me Three' ANTICIPATED BARRIERS TO DISCHARGE:: None identified at this time. TRANSPORTATION:: Via private vehicle PLAN:: Tonja to return home with no anticipated services. She will F/U with Dr. Andrews and plan of care as prescribed. Tonja to transport via private vehicle.
--- NOTE | 2018-06-14 07:20 | DSE_ITS ---
Date of service: 06/14/18 Time of Service: 12:24 DS: Diagnosis Discharge Diagnosis (1) S/P appendectomy: Status: Acute Discharge Plan Disposition Patient Disposition: HOME Condition: Stable Discharge Details Reason For Visit: acute appendicitis Admit Date/Time: 06/13/18 21:52 Admit Provider: Stefani Andrews Attending Provider: Stefani Andrews Primary Care Provider: None,None Hospital Course Hospital Course: Mrs. Joseph is a pleasant 67 year old female who was seen in the ER with acute appendicitis. She was taken to the OR on 06/13/18 and underwent a Laparoscopic Appendectomy. The appendix was dilated and inflammed. There was suppurative changes noted and cloudy fluid. WBC count on admission was 13,000. Patient did well after surgery. She was afebrile and pain was well controlled. She tolerated clear liquids the night of surgery and was advanced to a regular diet the next morning. She tolerated a regular diet for Breakfast and lunch. WBC count the morning after surgery was >18. Most likely inflammatory but will cover with Antibiotics just in case . Patient was discharged home on POD#1. Home Meds and New Rx's Prescriptions: New acetaminophen [Tylenol 8 Hour] 650 mg tablet extended release 650 mg PO Q6H PRN PRN (Reason: pain) Qty: 20 RF: 0 ibuprofen 600 mg tablet 600 mg PO QID PRN (Reason: pain) Qty: 20 RF: 0 tramadol 50 mg tablet 50 mg PO Q6H PRN (Reason: pain) Qty: 14 RF: 0 Continued vitamin K2 40 mcg tablet 200 mcg PO DAILY RF: 0 zolpidem 5 mg tablet 5 mg PO PRN Qty: 30 RF: 0 multivitamin [Daily Vitamin] 1 EACH tablet 1 ea PO DAILY RF: 0 omega-3 fatty acids 1,000 MG capsule 1,000 mg PO DAILY RF: 0 ascorbic acid (vitamin C) [Vitamin C] 500 MG tablet 500 mg PO DAILY RF: 0 cholecalciferol (vitamin D3) 1,000 UNIT capsule 1,000 unit PO DAILY RF: 0 melatonin 1 MG tablet 0.6 mg PO HS RF: 0 Iodine 3 mg PO DAILY RF: 0 Probiotic 1 EACH capsule 1 ea PO DAILY RF: 0 magnesium oxide 250 MG tablet 350 mg PO DAILY RF: 0 Discharge Instructions Instructions: Laparoscopic Appendectomy (DC) Additional Instructions: Activity at Home after surgery: 1. Make sure you walk outside at least 4 times per day 2. You should be able to climb a flight of stairs 3. No driving while in pain or taking pain medications 4. No strenuous activity or heavy lifting for 2 weeks Diet, Nutrition, & wound healin. Avoid alcohol until after you are recovered from your surgery 2. Make sure to eat plenty of lean protein (meat, fish, eggs, cottage cheese, beans) 3. Eat a variety of fruits and vegetables. Eat plenty of high fiber foods to avoid constipation. 4. Drink plenty of liquids to stay hydrated and avoid constipation Pain Medications: 1. Alternate Tylenol 1000 mg and Ibuprofen 600 mg every 3 hours 2. If a narcotic has been prescribed take as directed only for breakthrough pain For Constipation: 1. Take Milk of Magnesia or MiraLax as needed for constipation Other: 1. You may shower daily. Do not scrub the incisions 2. Do not soak the incisions for 1 week 3. You may alternate ice and heat as needed for pain and swelling Wound Care: 1. Keep the incisions clean and dry Please call our office if you develop: 1. Fevers >101.5 2. Nausea or Vomiting 3. Worsening pain 4. Redness and thick discharge from the wounds If after hours please call the Hospital at and ask to speak to the on-call surgeon Referrals: Stefani Andrews MD [ [facility] STAFF PHYSICIAN] - 06/28/18 1:45 pm Activity:: No lifting, pulling or pushing >20 lb x 2 weeks Equipment/Supplies:: No Equipment Needed Diet:: As Tolerated Discharge Orders Discharge Orders: Discharge Order (Routine); Ordered 06/14/18 Ordered By: Stefani Andrews Exam GI Inspection: incision (c/d/i) Palpation: soft and tender in the RLQ (mild. No rebound or guarding) Auscultation: normal bowel sounds DS: Data Vitals/I&O Vitals and I&O: Vital Signs Temperature 99.3 F 06/14/18 03:34 Temperature Source Tympanic 06/14/18 03:34 Pulse 66 06/14/18 03:34 Pulse Rhythm Regular 06/14/18 06:47 Respiratory Rate 16 06/14/18 03:34 Respiratory Effort 06/14/18 06:47 Respiratory Depth Normal 06/14/18 06:47 Respiratory Pattern Normal 06/14/18 06:47 Blood Pressure 100/62 06/14/18 03:34 Blood Pressure Mean 76 06/13/18 20:01 Blood Pressure Position Sitting 06/13/18 17:04 Pulse Oximetry 94 L 06/14/18 03:34 Respiratory End-tidal CO2 28 06/13/18 21:59 Oxygen Delivery Method Room Air 06/14/18 03:34 Oxygen Flow Rate 0 06/14/18 03:34 Pain Level 0 06/13/18 23:30 Intake & Output 06/13/18 06/13/18 06/14/18 11:59 23:59 11:59 Intake Total 2400 / 2400 915 / 915 Output Total 355 / 355 1850 / 1850 Balance 2045 / 2045 -935 / -935 Weight 135 lb 0.001 oz Intake: IV 2400 / 2400 365 / 365 Oral 550 / 550 Output: Urine 350 / 350 1850 / 1850 Estimated Blood Loss 5 / 5 Other: Urine Color Pale Yellow Urine Appearance Clear Clear Urine Odor Normal Comment Total of two voids Emesis Description None Voiding Methods Toilet Labs on day of discharge: Labs from last 24 hours 06/14/18 06/13/18 06/13/18 06:45 18:25 17:05 WBC Pending RBC Pending Hgb Pending Hct Pending MCV Pending MCH Pending MCHC Pending RDW Pending Plt Count Pending MPV Pending Immature Gran % Pending Neutrophils % Pending Lymphocytes % Pending Monocytes % Pending Eosinophils % Pending Basophils % Pending Absolute Neutrophils Pending Absolute Lymphocytes Pending Absolute Monocytes Pending Absolute Eosinophils Pending Absolute Basophils Pending PT INR APTT 23.2 Sodium Potassium Chloride Carbon Dioxide Anion Gap BUN Creatinine Estimated GFR/1.73 m2 Glucose Calcium Magnesium Total Bilirubin Conjugated Bilirubin AST ALT Alkaline Phosphatase Total Protein Albumin Lipase Urine Color Yellow Urine Clarity Clear Urine pH 6.0 Ur Specific [place] 1.015 Urine Protein Negative Urine Ketones 80 H Urine Blood Negative Urine Nitrite Negative Urine Bilirubin Negative Urine Urobilinogen 0.2 Ur Leukocyte Esterase Small H Urine RBC Negative Urine WBC 5-10 Ur Epithelial Cells Few Urine Crystals Negative Urine Bacteria Few Urine Casts Negative Urine Mucus Negative Ur Culture Indicated? Yes Urine Glucose Negative 06/13/18 06/13/18 06/13/18 17:05 17:05 17:05 WBC 13.32 H RBC 5.04 Hgb 14.9 Hct 44.3 MCV 87.9 MCH 29.6 MCHC 33.6 RDW 12.8 Plt Count 257 MPV 10.3 Immature Gran % 0.2 Neutrophils % 81.2 Lymphocytes % 13.7 Monocytes % 4.4 Eosinophils % 0.3 Basophils % 0.2 Absolute Neutrophils 10.82 H Absolute Lymphocytes 1.82 Absolute Monocytes 0.59 Absolute Eosinophils 0.04 Absolute Basophils 0.03 PT 9.9 INR 1.0 APTT Sodium 136 Potassium 3.4 L Chloride 97 L Carbon Dioxide 28.1 Anion Gap 10.9 BUN 14 Creatinine 0.91 Estimated GFR/1.73 m2 >= 60.00 Glucose 140 H Calcium 9.0 Magnesium 1.6 L Total Bilirubin 0.8 Conjugated Bilirubin 0.16 AST 14 L ALT 18 Alkaline Phosphatase 67 Total Protein 8.0 Albumin 3.8 Lipase 92 Urine Color Urine Clarity Urine pH Ur Specific [place] Urine Protein Urine Ketones Urine Blood Urine Nitrite Urine Bilirubin Urine Urobilinogen Ur Leukocyte Esterase Urine RBC Urine WBC Ur Epithelial Cells Urine Crystals Urine Bacteria Urine Casts Urine Mucus Ur Culture Indicated? Urine Glucose 06/13/18 18:25 Urine - Reflex from Urine Culture - Pending Preliminary micro results at discharge 06/13/18 18:25 Urine Culture - Pending Urine - Reflex from [facility] Medical History Hx of appendicitis (Acute ~06/13/18) Actinic keratosis due to exposure to sunlight (Chronic) Insomnia (Chronic) Osteopenia of femoral neck (Chronic) Rectocele, female (Chronic) TV (tinea versicolor) (Chronic) Surgical History S/P appendectomy (Acute ~06/13/18) Family History Mother No problems noted. Other Heart disease Hyperlipidemia Osteoporosis Social History household members: spouse marital status details: Rell number of children: 3 current occupational status: retired current occupation: Retired dental hygienist Smoking and Tabacco status: Never second hand exposure: Yes alcohol intake: current alcohol intake frequency: a few times a week substance use type: does not use Seatbelt use: always additional social history: Children: Kaitlynn-lives in [place]. One grandchild-Lopez; Allen 31 years old lives in [place], [place]. Izzy 26 yo. Female Reproductive History Menstrual Menopause type: natural (50 years old) History History 5 Para Hx # Term Pregnancies 3 Multiple births Hx # Pregnancies Ectopic pregnancies AB induced Hx Number of Living Children AB spontaneous
[2018-06-14 07:23] LABS: Absolute Basophil Count 0.02 k/cumm (0.0-0.2); Absolute Lymphocyte Count 0.97 k/cumm (1.2-3.4); Absolute Monocyte Count 0.97 k/cumm (0.11-0.7); Absolute Neutrophil Count 16.01 k/cumm (1.2-6.7)
[2018-06-14 07:25] VITALS: BP 103/63; PULSE 62; RESP 18; TEMP 36.1; O2SAT 96
[2018-06-14] MEDS: Pantoprazole 40 MG VIAL IVP (09:32)
[2018-06-14 11:45] VITALS: BP 98/61; PULSE 58; RESP 18; TEMP 37.1; O2SAT 98
--- NOTE | 2018-06-14 11:59 | PGE_ITS ---
Date of Service Date of service: 06/14/18 Time of Service: 11:50 Assessment and Plan (1) S/P appendectomy: Current visit: Yes Status: Acute pt is s/p lap appy from earlier today. doing well. pain controlled. tolerating po's. up and walking. dpt is stable for d/c from surgical standpoint. d/w pt recovery expectations and post Op care. She doesn't require any further abx and doing well w/ non narcotic pain management. D/w wound care/activity/warning sings. She will need to F/u in sx clinic in 1-2 wks. call or return to ED if fever > 100.5/can't keep fluids down/severe pain/CP or productive cough. These are specifically addressed in DC summary Subjective Patient reports: feels better, tolerating a regular diet, voiding w/o difficulty and flatus; denies nausea, vomiting and fever Interval history since last seen: pt doing well s/p lap appy. She is tolerating a regular diet. She is up walking. no CP or SOB. no productive cough. no N/V. no eye pain. no pain or diff swallowing. minimal abdominal pain. no shoulder pain. urinating without problems. no calf pain or swelling. Exam Const General: cooperative and healthy appearing Nutritional Appearance: average body habitus and well nourished Orientation: alert, awake and oriented x3 HENMT Head: normal to inspection, normocephalic and atraumatic Teeth and gingiva: dentition normal Eyes General: appearance normal, both eyes and all related structures Sclera: sclerae normal Cornea: corneas normal Pupils: PERRL Chest Chest: normal inspection of the chest Resp Effort & Inspection: normal respiratory effort and able to speak in complete sentences Auscultation: clear to auscultation bilaterally, no rales, no rhonchi and no wheezes Cardio Jugular venous pressure: no JVD Rate: regular rate Rhythm: regular rhythm GI Inspection: normal to inspection Palpation: soft (incisions C/D/I. no drainage/echymosis/bleeding ) Objective Objective Clinical Data: Abnormal lab results 06/13/18 06/13/18 06/13/18 Range/Units 17:05 17:05 18:25 WBC 13.32 H (4.4-10.8) k/cumm Absolute Neutrophils 10.82 H (1.2-6.7) k/cumm Absolute Lymphocytes (1.2-3.4) k/cumm Absolute Monocytes (0.11-0.7) k/cumm Potassium 3.4 L (3.5-5.1) mmol/L Chloride 97 L (98-107) mmol/L Glucose 140 H (70-100) mg/dL Magnesium 1.6 L (1.8-2.4) mg/dL AST 14 L (15-37) U/L Urine Ketones 80 H (Negative) mg/dL Ur Leukocyte Esterase Small H (Negative) 06/14/18 Range/Units 06:45 WBC 18.01 H D (4.4-10.8) k/cumm Absolute Neutrophils 16.01 H (1.2-6.7) k/cumm Absolute Lymphocytes 0.97 L (1.2-3.4) k/cumm Absolute Monocytes 0.97 H (0.11-0.7) k/cumm Potassium (3.5-5.1) mmol/L Chloride (98-107) mmol/L Glucose (70-100) mg/dL Magnesium (1.8-2.4) mg/dL AST (15-37) U/L Urine Ketones (Negative) mg/dL Ur Leukocyte Esterase (Negative) Vital Signs Temperature 36.1 C L 06/14/18 07:25 Temperature Source Tympanic 06/14/18 07:25 Pulse 62 06/14/18 07:25 Pulse Rhythm Regular 06/14/18 09:00 Respiratory Rate 18 06/14/18 07:25 Respiratory Effort 06/14/18 09:00 Respiratory Depth Normal 06/14/18 09:00 Respiratory Pattern Normal 06/14/18 06:47 Blood Pressure 103/63 06/14/18 07:25 Blood Pressure Mean 76 06/13/18 20:01 Blood Pressure Position Sitting 06/13/18 17:04 Pulse Oximetry 96 06/14/18 07:25 Respiratory End-tidal CO2 28 06/13/18 21:59 Oxygen Delivery Method Room Air 06/14/18 07:25 Oxygen Flow Rate 0 06/14/18 07:25 Pain Level 0 06/14/18 07:25 Intake & Output 06/13/18 06/13/18 06/14/18 11:59 23:59 11:59 Intake Total 2400 / 2400 1455 / 1455 Output Total 355 / 355 185 / 1850 Balance 2044 / 2044 -395 / -395 Weight 61.235 kg Intake: IV 2400 / 2400 365 / 365 Oral 1090 / 1090 Output: Urine 350 / 350 1850 / 1850 Estimated Blood Loss Other: Urine Color Pale Yellow Urine Appearance Clear Clear Urine Odor Normal Comment Total of two voids Emesis Description None Voiding Methods Toilet Laboratory Results WBC 18.01 k/cumm (4.4-10.8) H D 06/14/18 06:45 RBC 4.10 m/cumm (4.00-5.20) 06/14/18 06:45 Hgb 12.2 g/dL (12.0-15.5) D 06/14/18 06:45 Hct 36.4 % (36.0-46.0) 06/14/18 06:45 MCV 88.8 fL (80-95) 06/14/18 06:45 MCH 29.8 pg (27.0-33.0) 06/14/18 06:45 MCHC 33.5 g/dL (32.0-36.0) 06/14/18 06:45 RDW 12.9 % (11.7-14.6) 06/14/18 06:45 Plt Count 228 x1000/uL (130-400) 06/14/18 06:45 MPV 10.4 fL (8.0-11.0) 06/14/18 06:45 Immature Gran % 0.2 06/14/18 06:45 Neutrophils % 88.9 06/14/18 06:45 Lymphocytes % 5.4 06/14/18 06:45 Monocytes % 5.4 06/14/18 06:45 Eosinophils % 0.0 06/14/18 06:45 Basophils % 0.1 06/14/18 06:45 Absolute Neutrophils 16.01 k/cumm (1.2-6.7) H 06/14/18 06:45 Absolute Lymphocytes 0.97 k/cumm (1.2-3.4) L 06/14/18 06:45 Absolute Monocytes 0.97 k/cumm (0.11-0.7) H 06/14/18 06:45 Absolute Eosinophils 0.00 k/cumm (0.0-0.7) 06/14/18 06:45 Absolute Basophils 0.02 k/cumm (0.0-0.2) 06/14/18 06:45 PT 9.9 sec (9.3-11.0) 06/13/18 17:05 INR 1.0 (0.9-1.1) 06/13/18 17:05 APTT 23.2 sec (21.0-31.4) 06/13/18 17:05 Sodium 136 mmol/L (136-145) 06/13/18 17:05 Potassium 3.4 mmol/L (3.5-5.1) L 06/13/18 17:05 Chloride 97 mmol/L (98-107) L 06/13/18 17:05 Carbon Dioxide 28.1 mmol/L (21.0-32.0) 06/13/18 17:05 Anion Gap 10.9 mmol/L (3-11) 06/13/18 17:05 BUN 14 mg/dL (7-18) 06/13/18 17:05 Creatinine 0.91 mg/dL (0.55-1.02) 06/13/18 17:05 Estimated GFR/1.73 m2 >= 60.00 (mL/min/1.73m2) 06/13/18 17:05 Glucose 140 mg/dL (70-100) H 06/13/18 17:05 Calcium 9.0 mg/dL (8.5-10.1) 06/13/18 17:05 Magnesium 1.6 mg/dL (1.8-2.4) L 06/13/18 17:05 Total Bilirubin 0.8 mg/dL (0.2-1.0) 06/13/18 17:05 Conjugated Bilirubin 0.16 mg/dL (0.00-0.20) 06/13/18 17:05 AST 14 U/L (15-37) L 06/13/18 17:05 ALT 18 U/L (12-78) 06/13/18 17:05 Alkaline Phosphatase 67 U/L (46-116) 06/13/18 17:05 Total Protein 8.0 g/dL (6.4-8.2) 06/13/18 17:05 Albumin 3.8 g/dL (3.4-5.0) 06/13/18 17:05 Lipase 92 U/L (73-393) 06/13/18 17:05 Urine Color Yellow (Yellow) 06/13/18 18:25 Urine Clarity Clear 06/13/18 18:25 Urine pH 6.0 (5-8) 06/13/18 18:25 Ur Specific [place] 1.015 (1.005-1.025) 06/13/18 18:25 Urine Protein Negative mg/dL (Negative) 06/13/18 18:25 Urine Ketones 80 mg/dL (Negative) H 06/13/18 18:25 Urine Blood Negative (Negative) 06/13/18 18:25 Urine Nitrite Negative (Negative) 06/13/18 18:25 Urine Bilirubin Negative (Negative) 06/13/18 18:25 Urine Urobilinogen 0.2 EU/dL (Up TO 0.2) 06/13/18 18:25 Ur Leukocyte Esterase Small (Negative) H 06/13/18 18:25 Urine RBC Negative (0-2) 06/13/18 18:25 Urine WBC 5-10 HPF (0-5) 06/13/18 18:25 Ur Epithelial Cells Few HPF (Negative) 06/13/18 18:25 Urine Crystals Negative HPF (Negative) 06/13/18 18:25 Urine Bacteria Few HPF (Negative) 06/13/18 18:25 Urine Casts Negative LPF (Negative) 06/13/18 18:25 Urine Mucus Negative (Negative) 06/13/18 18:25 Ur Culture Indicated? Yes 06/13/18 18:25 Urine Glucose Negative mg/dL (Negative) 06/13/18 18:25
[2018-06-14] MEDS: traMADol 50 MG TAB PO (13:33)
[2018-06-14] MEDS: Acetaminophen 325 MG TAB 650 MG PO (13:33)
--- NOTE | 2018-06-14 14:14 | PDOC.CMDIS ---
- If Service Date Differs Date of service: 06/14/18 Time of Service: 14:14 LACE Index Scoring Tool - Questions: Length of Stay (in days): 2 Acuity (Admit via E.D.?): Yes E.D. Visits: 1 - Answers: Total Score: 6 Risk of Readmission: Low Risk Care Management Discharge Reason for Hospitalization: Acute Appendicitis Discharge Plan: Tonja will return home today with no services. She will F/U with Dr. Andrews and plan of care as prescribed. Patient/Family Education Needs: Review DC instructions, any limitations, and discuss 'Ask me Three'
== END 2018-06-14 14:05 | disposition home or self-care (01) | DRG 343 ==
LOC: ER 19:49 → SUR 20:23 → MS 22:14
PROVIDERS: Admitting Provider Surgery; Emergency Provider Emergency Medicine; Visit Provider Surgery
PROC: 0DTJ4ZZ Resection of Appendix, Percutaneous Endoscopic Approach (ICD-10-PCS; CPT 44970; principal; 2018-06-13 19:45)
DX: K35.890 Other acute appendicitis without perforation or gangrene (principal)
CPT/HCPCS: 44970; 36415; 80053; 80076; 83690; 87077; 96361; 96365; 96375; 96376; 99223; 99253; 99285; NC; 74174; 81003; 81015; 83735; 85025; 85610; 85730; 87086; 87186; 88304; 99284; J0131; J1100; J1885; J2250; J2405; J2543; J3010; J3490

== ENCOUNTER 2018-10-27 14:57 | Emergency (ER) | payer BC, SELFPAY ==
[2018-10-27 15:07] VITALS: BP 128/71; PULSE 82; RESP 16; TEMP 36.8; O2SAT 99
--- NOTE | 2018-10-27 16:12 | W.ED.GENAD ---
Discharge Plan Disposition Patient Disposition: HOME Condition: Stable Discharge Details Chief Complaint: GenMedical Clinical Impression: Acute Lyme disease Primary Care Provider: Britta Molina ED Provider: Zachery Austin Home Meds and New Rx's Prescriptions: New doxycycline hyclate 100 mg tablet 100 mg PO BID 14 Days Qty: 28 RF: 0 ondansetron 4 mg tablet,disintegrating 4 mg PO QID PRN (Reason: nausea and vomiting) Qty: 20 RF: 0 No Action vitamin K2 40 mcg tablet 200 mcg PO DAILY RF: 0 zolpidem 5 mg tablet 5 mg PO PRN Qty: 30 RF: 0 multivitamin [Daily Vitamin] 1 EACH tablet 1 ea PO DAILY RF: 0 omega-3 fatty acids 1,000 MG capsule 1,000 mg PO DAILY RF: 0 ascorbic acid (vitamin C) [Vitamin C] 500 MG tablet 500 mg PO DAILY RF: 0 cholecalciferol (vitamin D3) 1,000 UNIT capsule 1,000 unit PO DAILY RF: 0 melatonin 1 MG tablet 0.6 mg PO HS RF: 0 Iodine 3 mg PO DAILY RF: 0 Probiotic 1 EACH capsule 1 ea PO DAILY RF: 0 magnesium oxide 250 MG tablet 350 mg PO DAILY RF: 0 Discharge Instructions Instructions: Doxycycline (By mouth) Additional Instructions: We are starting treatment for you for lyme disease given your symptoms and rash we have placed you on our follow up list to get set up with a general practitioner if you feel more ill, have new symptoms such as difficulty breathing or persistent vomit return to the emergency department Medical Decision Making 67 yo female comes in with feeling fatigue and has a rash on her right shoulder area. She denies recent travel, fevers. Had a dull headache intermittently since, not the worst of her life and no neck stiffness or discomfort. She is in no distress on exam and appears well systemically. 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 She has mild erythema of the right shoulder about 10cm in diameter with some central clearing. Given her rash and symptoms I suspect she may have tick born illness, it is not warm to touch or hot so feel it is less likely cellulitis. She feels well enough to start doxy and f/u with pcp and I am putting her on our f/u list to get set up with a primary as she doesn't have one, and she will return if worsening. Given her well appearnce without fevers doubt sepsis and do not feel other lab work indicated at this time Differential Diagnosis tick born illness, cellulitis HPI General Mode of arrival: ambulatory. Date/Time Provider Initiated Documentation: 10/27/18 15:28. Limitations to Documentation: no limitations. Information obtained by: patient. History of Present Illness 67 year old F presents to the emergency department with the chief complaint of fatigue, described as moderate, Patient started experiencing this day(s) (4) and it has been constant. No relieving factors improve symptom(s), No exacerbating factors reported . Patient notes rash. Patient did receive the following treatments prior to arrival, none Related Data Home Medications Medication Instructions Recorded Confirmed Iodine 3 mg PO DAILY 03/27/13 06/29/18 ascorbic acid (vitamin C) [Vitamin 500 mg PO DAILY 03/27/13 06/29/18 C] cholecalciferol (vitamin D3) 1,000 unit PO DAILY 03/27/13 06/29/18 melatonin 0.6 mg PO HS 03/27/13 06/29/18 multivitamin [Daily Vitamin] 1 ea PO DAILY 03/27/13 06/29/18 omega-3 fatty acids 1,000 mg PO DAILY 03/27/13 06/29/18 Probiotic 1 ea PO DAILY 04/04/14 06/29/18 magnesium oxide 350 mg PO DAILY 04/08/15 06/29/18 vitamin K2 40 mcg tablet 200 mcg PO DAILY tab 05/03/18 06/29/18 zolpidem 5 mg tablet 5 mg PO PRN #30 tab 05/03/18 06/29/18 doxycycline hyclate 100 mg PO BID 14 Days #28 tab 10/27/18 ondansetron 4 mg PO QID PRN #20 tab 10/27/18 Previous Rx's Medication Instructions Recorded zolpidem 5 mg tablet 5 mg PO PRN #30 tab 05/03/18 doxycycline hyclate 100 mg PO BID 14 Days #28 tab 10/27/18 ondansetron 4 mg PO QID PRN #20 tab 10/27/18 Allergies Allergy/AdvReac Type Severity Reaction Status Date / Time No Known Allergies Allergy Unverified 05/03/18 14:20 General Stated Complaint: GenMedical MAURICE: 3 Review of Systems Review of Systems All systems reviewed & are unremarkable except as noted in HPI and below Constitutional Denies fever(s) Cardiovascular Denies chest pain and Denies dyspnea Respiratory Denies cough and Denies dyspnea Gastrointestinal Denies abdominal pain, Denies nausea and Denies vomiting Psychiatric Denies depression [facility] Social History Smoking/Tobacco Use Status: Never Second Hand Exposure: Yes Alcohol Intake: current Alcohol Intake frequency: a few times a week Drug use: Never Substance use type: does not use Household members: spouse Number of Children: 3 current occupation: Retired dental hygienist Seatbelt use: always Do you feel safe at home: Yes Do you feel safe in your relationship?: Yes Additional Social history: Children: Kaitlynn-lives in [place]. One grandchild-Elis Villa 31 years old lives in [place], [place]. Izzy 26 yo. Female Reproductive History Menstrual Menopause type: natural (50 years old) History History 5 Para Hx # Term Pregnancies 3 Multiple births Hx # Pregnancies Ectopic pregnancies AB induced Hx Number of Living Children AB spontaneous Exam Const General: no acute distress Orientation: alert HENMT Head: normal to inspection Ears: external ears normal General nose exam: external nose normal Mouth: moist mucous membranes Eyes General: appearance normal, both eyes and all related structures Neck Neck: normal visual inspection Resp Effort & Inspection: normal respiratory effort and able to speak in complete sentences Cardio Rate: regular rate Skin General skin exam: elasticity normal Neuro General: alert and oriented x3 Extrem General: normal to inspection Psych Mental Status: mental status grossly normal Course Vital Signs Temperature 36.8 C 10/27/18 15:07 Pulse 82 10/27/18 15:07 Respiratory Rate 16 10/27/18 15:07 Blood Pressure 128/71 10/27/18 15:07 Pulse Oximetry 99 10/27/18 15:07 Temperature 36.8 C 10/27/18 15:07 Temperature Source Skin 10/27/18 15:07 Pulse 82 10/27/18 15:07 Respiratory Rate 16 10/27/18 15:07 Respiratory Effort Non-Labored 10/27/18 15:12 Blood Pressure 128/71 10/27/18 15:07 Blood Pressure Position Sitting 10/27/18 15:07 Pulse Oximetry 99 10/27/18 15:07 Oxygen Delivery Method Room Air 10/27/18 15:07 Oxygen Flow Rate 0 10/27/18 15:07
[2018-10-27 16:28] VITALS: BP 128/71; PULSE 82; RESP 15; TEMP 36.8; O2SAT 99
--- NOTE | 2018-10-27 18:43 | NUR.NOTE ---
Addendum entered by Dianne Han 10/27/18 18:43: Telephone provider Rodrigue Original Note: Referral faxed to [facility] to establish and f/u.Nursing Note:
[2018-10-29 23:51] LABS: Anaplasma phagocytophilum Negative (Negative); B. miyamotoi PCR Negative (Negative); Babesia divergens/MO-1 Negative (Negative); Babesia duncani Negative (Negative); Babesia microti Negative (Negative); Ehrlichia chaffeensis Negative (Negative); Ehrlichia ewingii/canis Negative (Negative); Ehrlichia muris eauclairensis Negative (Negative)
[2018-10-31 12:41] LABS: Lyme Ab w Rflx to Lyme Confirm Negative
== END 2018-10-27 16:54 | disposition home or self-care (01) ==
PROVIDERS: Emergency Provider Emergency Medicine; PCP Family Medicine
DX: A69.20 Lyme disease, unspecified (principal); R51 Headache
CPT/HCPCS: 36415; 87798; 93005; 99283; 86618; 93010

== ENCOUNTER 2018-12-21 00:37 | Outpatient (CLI) | payer BC, SELFPAY ==
--- NOTE | 2018-12-21 09:05 | DI.MAMMO_ITS ---
SYMPTOMS/DIAGNOSIS: SCREENING, Z12.31, PREVENTATIVE CARE, Z00.00 MAMMOGRAM: Mammograms were interpreted according to the usual protocol including computer analysis with CAD system, tomosynthesis and C view imaging. Comparison is made with exams from 2012 through 2017. The breasts are composed of scattered fibroglandular densities, breast density Category B. No suspicious masses or suspicious microcalcifications are seen. There has been no significant change. IMPRESSION: Category I, negative mammogram. Yearly screening mammography is recommended. [facility] ASSESSMENT OF FINDINGS: Negative. Category 1. Patient will receive a letter notifying them of these results. BI-RADS category B. There are scattered areas of fibroglandular density.
[2018-12-21 10:23] LABS: Calculated LDL 165 mg/dL; Cholesterol 259 mg/dL (50-200); HDL Cholesterol 69 mg/dL (40-60); Triglyceride 128 mg/dL (30-150)
== END 2018-12-21 00:57 ==
PROVIDERS: Visit Provider Obstetrics & Gynecology Gynecology
DX: Z00.00 Encounter for general adult medical examination without abnormal findings (principal); Z12.31 Encounter for screening mammogram for malignant neoplasm of breast; Z13.220 Encounter for screening for lipoid disorders
CPT/HCPCS: 36415; 77063; 77067; 80061

== ENCOUNTER 2020-05-20 02:54 | Outpatient (CLI) | payer BC, SELFPAY ==
--- NOTE | 2020-05-20 15:07 | DI.MAMMO_ITS ---
EXAM: MG MAMMO SCREENING CLINICAL HISTORY: screening TECHNIQUE: Bilateral full field digital CC and MLO mammographic images were obtained with 3D tomosyn thesis and utilizing computer aided detection (CAD). COMPARISON: Available for comparison. FINDINGS: Masses/Architectural Distortion: There is a small asymmetric density in the outer left breast in the retroareolar region seen on the CC view. Microcalcifications: No suspicious pleomorphic-type are seen. Skin Thickening/Nipple Retraction: None. IMPRESSION: 1. Small asymmetric density in the lateral retroareolar region of the left breast seen on the CC view . 2. Spot compression views requested for further evaluation. Ultrasound may be indicated at that time . BI-RADS Category 0 - Assessment Incomplete: Need additional imaging evaluation Breast Density - Category B - Scattered areas of fibroglandular density Breast density category C or D implies that the patient has dense breast tissue. Dense breast tissue is very common and is not abnormal but dense breast tissue can make it harder to find cancer on a ma mmogram. Also, dense breast tissue may increase their breast cancer risk. This information about the result of the mammogram report was provided to the patient to raise their awareness. Use this report when you speak with the patient about their risks for breast cancer, which includes their family hist ory. At that time, you may recommend for more screening tests (Ultrasound or MRI) as they might be us eful based on their risk. A negative radiographic report should not delay biopsy if a dominant or clinically suspicious mass is present. Up to ten percent of cancers are not identified on mammography. A negative report may reinforce clinical impression. Adenosis and dense breasts may obscure an underlying neoplasm. False positive reports average 6 to 10%. Patient will receive a letter notifying them of these results.
== END 2020-05-20 03:14 ==
PROVIDERS: PCP Physician Assistant; Visit Provider Advanced Practice Midwife
DX: Z12.31 Encounter for screening mammogram for malignant neoplasm of breast (principal); R92.8 Other abnormal and inconclusive findings on diagnostic imaging of breast
CPT/HCPCS: 77063; 77067

== ENCOUNTER 2020-05-29 02:22 | Outpatient (CLI) | payer BC, SELFPAY ==
--- NOTE | 2020-05-29 16:18 | DI.MAMMO_ITS ---
EXAM: MG MAMMO SCREEN CALL BACK UNI CLINICAL HISTORY: F/U MAMMO, SMALL ASYMMETRIC DENSITY LATERAL RETROAREOLAR REGION LT BREAST TECHNIQUE: Spot compression views and tomographic imaging were performed. COMPARISON: Two thousand eleven through 20 May 2020. FINDINGS: The left breast are composed of scattered fibroglandular densities, Breast Density category B. No suspicious masses or suspicious microcalcifications are seen. No persistent abnormality is seen on the additional views performed. The findings are consistent wit h overlying fibroglandular tissue. There has been no significant change from prior exams. IMPRESSION: BI-RADS Category 1, Negative Yearly screening mammography is recommended. Breast Density - Category B, scattered fibroglandular densities.
== END 2020-05-29 02:23 ==
LOC: DI 02:23
PROVIDERS: PCP Physician Assistant; Visit Provider Advanced Practice Midwife
DX: R92.8 Other abnormal and inconclusive findings on diagnostic imaging of breast (principal)
CPT/HCPCS: 77063; 77067

== ENCOUNTER 2022-01-06 01:24 | Outpatient (CLI) | payer BC, SELFPAY ==
[2022-01-06 11:12] LABS: Calculated LDL 110 mg/dL (<100); Cholesterol 253 mg/dL (<200); Glucose 117 mg/dL (74-106); HDL Cholesterol 77 mg/dL (40-60); Triglyceride 332 mg/dL (<150)
== END 2022-01-06 01:25 | disposition home or self-care (01) ==
LOC: LBO 01:24
PROVIDERS: PCP Physician Assistant; Visit Provider Obstetrics & Gynecology Gynecology
DX: Z00.00 Encounter for general adult medical examination without abnormal findings (principal)
CPT/HCPCS: 36415; 80061; 82947

== ENCOUNTER → 2023-04-21 03:52 | Outpatient (CLI) | payer BC, SELFPAY ==
--- NOTE | 2023-04-21 12:00 | DI.MAMMO_ITS ---
Exam(s) MAMMO SCREENING EXAM: MAMMO SCREENING CLINICAL HISTORY: screening TECHNIQUE: Mammograms were interpreted according to the usual protocol including computer analysis w [employer] CAD system, tomosynthesis and C-view imaging. COMPARISON: 2013 through 2020 FINDINGS: The breasts are composed of scattered fibroglandular densities, Breast Density category B. No suspicious masses or suspicious microcalcifications are seen. No skin thickening or abnormal axillary lymph nodes are seen. There has been no significant change from prior exams. IMPRESSION: BI-RADS Category 1, Negative mammogram Yearly screening mammography is recommended. Breast Density - Category B, scattered fibroglandular densities. A negative radiographic report should not delay biopsy if a dominant or clinically suspicious mass is present. Up to ten percent of cancers are not identified on mammography. A negative report may reinforce clinical impression. Adenosis and dense breasts may obscure an underlying neoplasm. False positive reports average 6 to 10%. Patient will receive a letter notifying them of these results.
== END ==
PROVIDERS: PCP Physician Assistant; Visit Provider Obstetrics & Gynecology Gynecology
DX: Z12.31 Encounter for screening mammogram for malignant neoplasm of breast (principal)
CPT/HCPCS: 77063; 77067